=== PATIENT | female | born 1955 | race Caucasian/White ===

== ENCOUNTER 2021-11-24 16:43 | Outpatient (REF) | payer OTHER, MEDICAID, SELFPAY ==
--- NOTE | 2021-11-24 15:45 | ENDO_PTH ---
PATIENT: ALEN JANG LOC: [facility] U#:[id number] AGE/SX: 66/F ROOM: RE11/24/[address]: [place] Jessica MD : 1955 BED: DIS: 11/24/2021 SPEC #: [id number] RECD: 11/24/21 17:45 STATUS: SEAN REQ #: [id number] NATHAN: 11/24/21 15:[address]: [place] Jessica DEPT: Surgical Specimen RECD BY: Sofia Vogt ENTERED: 11/24/21 17:48 SP TYPE: Endo OTHR DR: Manuel Carson Tissues: 1 - ENDOCERVICAL BX/CURRETTE Procedures: GROSS AND MICRO LEVEL 4 Comments: [id number]
== END 2021-11-24 16:44 | disposition home or self-care (01) ==
LOC: LBN 16:43
PROVIDERS: PCP Family Medicine; Visit Provider Obstetrics & Gynecology
DX: N84.0 Polyp of corpus uteri (principal)
CPT/HCPCS: 88305